=== PATIENT | female | born 1990 | race Two or more races ===

== ENCOUNTER 2021-03-18 15:26 | Emergency (ER) | payer OTHER ==
[~2021-03-18] VITALS: Ht 154.9 cm; Wt 56.7 kg
[2021-03-18 16:10] VITALS: BP 121/59
[2021-03-18] MEDS ORDERED: AMOX-430 PO (16:23)
[2021-03-18] MEDS ORDERED: AMOX/CLAVULANATE 875 MG TABLET PO ONE (16:30)
[2021-03-18] MEDS ORDERED: AMOX/CLAVULANATE 875 MG TABLET ONE (16:32)
--- NOTE | 2021-03-18 16:40 | NUR ---
SEEN AND EXAMINED BY BRADY LINDSAY. WOUND CARE PROVIDED. D/C IN STABLE CONDITION.
== END 2021-03-18 16:41 | disposition home or self-care (01) ==
LOC: ER 15:28
DX: S61.451A Open bite of right hand, initial encounter (principal); W54.0XXA Bitten by dog, initial encounter; Y93.89 Activity, other specified; Y92.89 Other specified places as the place of occurrence of the external cause; Y99.8 Other external cause status

== ENCOUNTER 2022-08-05 13:23 | Emergency (ER) | payer OTHER ==
[~2022-08-05] VITALS: Ht 165.1 cm; Wt 61.2 kg
[~2022-08-05 13:23] MED LIST: AMOX-430 PO
[2022-08-05 14:14] LABS: HEMATOCRIT 40 % (33-45); HEMOGLOBIN 12.9 g/dL (11.5-14.8); LYMPHOCYTES % (AUTO) 16.3 % (20.0-44.0); MEAN CORPUSCULAR HGB CONC 32 g/dl (31.0-36.0); MEAN CORPUSCULAR VOLUME 84 fL (82-100); MONOCYTES % (AUTO) 5.4 % (2.0-12.0); NEUTROPHILS % (AUTO) 77.4 % (43.0-81.0); PLATELET COUNT (AUTO) 286 K/uL (150-450); RED BLOOD CELL COUNT(AUTO) 4.78 MIL/uL (4.0-5.2); WHITE BLOOD COUNT (AUTO) 9.5 K/uL (4.3-11.0)
[2022-08-05 14:15] LABS: BASOPHILS % (AUTO) 0.3 % (0.0-2.0); EOSINOPHILS % (AUTO) 0.6 % (0.0-6.0); LYMPHOCYTES # (AUTO) 1.6 K/uL (0.8-4.8); MONOCYTES # (AUTO) 0.5 K/uL (0.1-1.30); NEUTROPHILS # (AUTO) 7.4 K/uL (1.8-8.9)
[2022-08-05 16:16] VITALS: BP 124/76
== END 2022-08-05 16:16 | disposition home or self-care (01) ==
LOC: ER 13:28
DX: O20.0 Threatened abortion (principal); Z3A.00 Weeks of gestation of pregnancy not specified
CPT/HCPCS: 36415; 76856-TC; 84702-TC; 85025-TC